=== PATIENT | female | born 1995 | race Caucasian/White ===

== ENCOUNTER → 2019-09-10 14:21 | Outpatient (CLI) | payer OTHER, SELFPAY ==
[2019-09-10 08:09] VITALS: BMI 24.6
[2019-09-10 15:07] LABS: Mucous, Urine 0 SEEN /hpf (<or=2+)
[2019-09-10 15:23] LABS: Color, Urine Yellow (Yellow); Glucose, Dipstick Normal (Normal); Ketone-Dipstick Negative (Negative); Leukocyte Esterase-Dipstick 500 /ul (Negative); Nitrite-Dipstick Positive (Negative); Occult Blood-Urine 150 /ul (Negative); Protein-Dipstick Negative (Negative); Specific Gravity, Urine 1.005 (1.002-1.030); Urine Clarity Sl. Cloudy (Clear); Urine Urobilinogen 4 mg/dl (Normal); Urine pH 6.5 (5.0 - 8.0)
[2019-09-10 15:24] LABS: Urine Bilirubin Dipstick 3 mg/dL (Negative)
[2019-09-10 15:26] LABS: Bacteria RARE /hpf (None Seen); Red Blood Cells-Urine 0-5 SEEN /hpf (0-5); Squamous Epithelial Cells - UA 0-5 SEEN /hpf (5-10); White Blood Cells 5-10 SEEN /hpf (0-5)
== END ==
PROVIDERS: Referring Provider Physician Assistant; Visit Provider Physician Assistant
DX: N30.01 Acute cystitis with hematuria (principal)
CPT/HCPCS: 81001; 87086; 87088

== ENCOUNTER → 2019-09-18 14:23 | Outpatient (CLI) | payer OTHER, SELFPAY ==
[2019-09-17 14:28] VITALS: BMI 24.6
[2019-09-18 14:39] LABS: Bacteria 0 SEEN /hpf (None Seen); Mucous, Urine 0 SEEN /hpf (<or=2+)
[2019-09-18 15:08] LABS: Color, Urine Straw (Yellow); Glucose, Dipstick Normal (Normal); Ketone-Dipstick Negative (Negative); Leukocyte Esterase-Dipstick 100 /ul (Negative); Nitrite-Dipstick Negative (Negative); Occult Blood-Urine 250 /ul (Negative); Protein-Dipstick Negative (Negative); Specific Gravity, Urine 1.005 (1.002-1.030); Urine Bilirubin Dipstick Negative (Negative); Urine Clarity Clear (Clear); Urine Urobilinogen Normal (Normal)
[2019-09-18 15:14] LABS: Red Blood Cells-Urine 25-50 SEEN /hpf (0-5); Squamous Epithelial Cells - UA 0-5 SEEN /hpf (5-10); White Blood Cells 10-25 SEEN /hpf (0-5)
== END ==
PROVIDERS: Referring Provider Physician Assistant; Visit Provider Physician Assistant
DX: N30.01 Acute cystitis with hematuria (principal)
CPT/HCPCS: 81001; 87086; 87088

== ENCOUNTER 2020-07-14 19:10 | Inpatient (IN) | payer OTHER, SELFPAY ==
[2019-09-17 14:28] VITALS: BMI 24.6
[2020-07-14 19:43] VITALS: BP 109/67; PULSE 82; TEMP 36.7
[2020-07-14 19:44] VITALS: TEMP 36.9
[2020-07-14] MEDS: Lactated Ringers 1,000 ML 50 ML IV (20:05)
[2020-07-14 20:22] VITALS: BMI 30.9
[2020-07-14 20:26] LABS: Absolute Lymphocyte Count 1.51 X10^3/uL (0.83-4.51); Basophil# 0.04 X10^3/uL; Basophil% 0.5 % (0-1); Eosinophil# 0.03 X10^3/uL; Eosinophils% 0.4 % (0-5); Hematocrit 38.2 % (37-47); Hemoglobin 11.9 g/dL (12.0-15.0); Lymphocyte # 1.51 X10^3/ul (4.0); Lymphocyte % 18.4 % (19-41); Mean Corp Hgb Conc 31.2 g/dL (32-36); Mean Corpuscular Hgb 25.4 pg (27.0-32.0); Mean Corpuscular Volume 81.6 fL (81-99); Mean Platelet Vol. 10.4 fl (6.2-12.0); Monocyte# 0.52 X10^3/uL; Monocyte% 6.3 % (0-10); NRBC Flagged by Analyzer 0 % (0-5); Neutrophil # 6.01 X10^3/uL (2.7-7.7); Neutrophil % 73.3 % (47-70); POSITIVE MORPHOLOGY YES; Platelet Count 165 K/mm3 (150-450); RBC Distribution Width CV 20.9 % (11.6-14.6); Red Blood Count 4.68 M/mm3 (4.2-5.4); White Blood Count 8.2 K/mm3 (4.4-11.0)
[2020-07-14 20:27] LABS: Differential Indicated SCAN CRITERIA MET
[2020-07-14 20:31] LABS: Bedside Glucose 66 mg/dL (70-110)
[2020-07-14] MEDS: miSOPROStol 25 MCG TABLET VAGINAL (21:10)
[2020-07-14 21:13] LABS: Anisocytosis 1+; Hypochromasia RARE; Microcytosis RARE; Platelet Estimate ADEQUATE (ADEQ); Red Cell Morphology N CHROM NORMAL (NORM C&C)
[2020-07-14 21:19] VITALS: BP 119/69; PULSE 76; TEMP 36.7
[2020-07-14 22:00] LABS: Amphetamine Urine VISTA NEGATIVE (<1000 ng/mL); Barbiturate Urine VISTA NEGATIVE (< 200 ng/mL); Benzodiazepine Urine VISTA NEGATIVE (< 200 ng/mL); Cocaine Urine VISTA NEGATIVE (< 300 ng/mL); Ecstacy Urine VISTA NEGATIVE (< 500 ng/mL); Methadone Urine VISTA NEGATIVE (< 300 ng/mL); PCP Urine VISTA NEGATIVE (< 25 ng/mL); THC Urine VISTA NEGATIVE (< 50 ng/mL); Vista UDS pH Range 7
[2020-07-15] VITALS (55 sets, daily range): BP systolic 101–161; BP diastolic 57–78; PULSE 63–87; RESP 14–18; TEMP 36.2–37.4; O2SAT 98–100
[2020-07-15 00:36] LABS: Bedside Glucose 100 mg/dL (70-110)
[2020-07-15] MEDS: Lactated Ringers 500 ML 999 ML IV (03:43)
[2020-07-15] MEDS: fentaNYL-bupivacaine (epidural) 100 ML BAG EPIDURAL ×2 (04:52→09:03)
[2020-07-15 05:31] LABS: Bedside Glucose 135 mg/dL (70-110)
[2020-07-15 06:21] LABS: Bedside Glucose 121 mg/dL (70-110)
[2020-07-15 08:21] LABS: Bedside Glucose 99 mg/dL (70-110)
--- NOTE | 2020-07-15 08:42 | PN.OBGYN_ITS ---
Subjective: Patient seen at bedside. Has epidural and denies any pain or feelings of contractions. Objective: Blood sugar this morning= 99 Will continue to monitor - Physical Exam Vitals/I&O's: Vital Signs Temp Pulse BP Pulse Ox 97.2 F L 72 112/72 100 07/15/20 07:28 07/15/20 07:29 07/15/20 07:29 07/15/20 05:42 Weight: 179 lb 14.355 oz Body Mass Index (BMI) 30.9 Intake and Output for Last 24 Hours 07/13/20 07/14/20 07/15/20 23:59 23:59 23:59 Intake Total 1760.83 / 1760.83 Output Total 200 / 200 1500 / 1500 Balance -200 / -200 260.83 / 260.83 General: Alert, Oriented x3 HEENT: Atraumatic Lungs: Normal air movement Cardiovascular: Regular rate Skin: No rashes Neurological: Cranial nerves II-XII grossly intact Psych/Mental Status: Normal Affect Laboratory Results 07/14/20 19:54: POC Glucose 66 L 07/14/20 20:05: WBC 8.2, RBC 4.68, Hgb 11.9 L, Hct 38.2, MCV 81.6, MCH 25.4 L, MCHC 31.2 L, RDW Std Deviation 61.0 H, RDW Coeff of Demar 20.9 H, Plt Count 165, MPV 10.4, Immature Gran % (Auto) 1.100 H, Neut % (Auto) 73.3 H, Lymph % (Auto) 18.4 L, [place] % (Auto) 6.3, Eos % (Auto) 0.4, Baso % (Auto) 0.5, Absolute Neuts (auto) 6.0, Absolute Lymphs (auto) 1.51, Nucleated RBC % 0, Platelet Estimate ADEQUATE, RBC Morphology N CHROM, Hypochromasia RARE, Anisocytosis 1+, Microcytosis RARE 07/14/20 20:05: Blood Type A POSITIVE, Antibody Screen NEGATIVE 07/14/20 21:02: Urine Opiates Screen NEGATIVE, Urine Methadone Screen NEGATIVE, Ur Barbiturates Screen NEGATIVE, Ur Phencyclidine Scrn NEGATIVE, Ur Amphetamines Screen NEGATIVE, U Methamphetamin-MDMA NEGATIVE, U Benzodiazepines Scrn NEGATIVE, Urine Cocaine Screen NEGATIVE, U Cannabinoids Screen NEGATIVE, Ur Drug Screen Comment 07/15/20 00:27: POC Glucose 100 07/15/20 05:13: POC Glucose 135 H 07/15/20 06:14: POC Glucose 121 H 07/15/20 07:54: POC Glucose 99 Current Medications Acetaminophen (Tylenol) 325 - 650 mg PO Q4H PRN PRN PRN Reason: Pain Score 1-3/10 Al Hydroxide/Mg Hydroxide (Mylanta Ii) 15 - 30 ml PO Q4H PRN PRN PRN Reason: INDIGESTION Citric Acid/Sodium Citrate (Bicitra) 30 ml PO X1 PRN PRN Reason: Section Dextrose (D50w Syringe) 0 gm IV X1 PRN; Protocol PRN Reason: Hypoglycemia Ephedrine Sulfate () 10 mg IV Q10M PRN PRN Reason: hypotension Ephedrine Sulfate () 10 mg IM Q30M PRN PRN Reason: hypotension Fentanyl Citrate (Sublimaze (100mcg Ampule)) 25 - 50 mcg IV Q2H PRN PRN PRN Reason: Pain Score 4-10/10 Fentanyl/Bupivacaine/Sodium Chlor () 0 ml EPIDURAL UD [facility]; Protocol Last Admin: 07/15/20 04:52 Dose: 100 ml Documented by: Glucagon () 1 mg IM .X1 PRN PRN Reason: Hypoglycemia Lactated Ringer's () 500 mls @ 999 mls/hr IV .Q31M PRN PRN Reason: Epidural Last Infusion: 07/15/20 04:26 Dose: Infused Documented by: Lactated Ringer's () 500 mls @ 999 mls/hr IV .Q31M PRN PRN Reason: Corrective Measures Lactated Ringer's () 1,000 mls @ 50 mls/hr IV .Q20H SIMONE Last Infusion: 07/15/20 05:18 Dose: 200 mls/hr Documented by: Naloxone HCl 4 mg/ Dextrose 504 mls @ 0 mls/hr IV .Q0M PRN; Protocol PRN Reason: To maintain Resp. rate >10 Nalbuphine HCl (Nubain) 5 mg IV Q3H PRN PRN PRN Reason: ITCHING Naloxone HCl (Narcan) 0.02 mg IV Q1M PRN PRN Reason: RR< 10 AND PT UNRESPONSIVE Ondansetron HCl (Zofran) 4 mg IV Q4H PRN PRN PRN Reason: NAUSEA Prochlorperazine Edisylate (Compazine Iv) 10 mg IV Q6H PRN PRN PRN Reason: NAUSEA Sodium Chloride () 10 - 40 ml IV X1 PRN PRN Reason: SALINE FLUSH Medical Necessity - Tobacco Use Smoking Status: Former smoker Assessment/Plan All Active Problems (Last Reviewed 09/17/19 @ 14:28 by Anabel Lopez) UTI (urinary tract infection) (Acute) at 38.1 weeks gestation for induction of labor for gestational diabetes. Pain management Routine care Gestational Diabetes protocol CE- 80/-2 AROM for moderate amount of clear fluid IUPC placed without difficulty Pitocin started at 2mu/min Anticipate
[2020-07-15] MEDS: Oxytocin 30 units/NS 500 ml 30 UNITS/500 ML IV.SOLN IV (09:02)
[2020-07-15] MEDS: Lactated Ringers 1,000 ML 200 ML IV (09:03)
[2020-07-15 09:46] LABS: Bedside Glucose 91 mg/dL (70-110)
[2020-07-15 10:16] LABS: Bedside Glucose 90 mg/dL (70-110)
[2020-07-15 11:16] LABS: Bedside Glucose 75 mg/dL (70-110)
[2020-07-15] MEDS: Oxytocin 30 units/NS 500 ml 30 UNITS/500 ML IV.SOLN 334 UNITS IV (12:03)
--- NOTE | 2020-07-15 12:15 | PCM.HP.OB ---
History Date of Admission: 07/15/20 Final EMILIE: 07/26/20 Final EMILIE Source: US <20 weeks Gestational age: 38 Weeks and 3 Days History of this : This is a 24 year-old, G 3, P 1011 38-2/7 weeks gestation presented for cervical ripening on 07/14/2020 due to uncontrolled insulin-dependent gestational diabetes in . She has a history of an abnormal Pap smear, marijuana use in , and anemia in the . Her first vaginal delivery was of a 9 pound 1 ounce at 40-2/7 weeks gestation. The mean weight on this by ultrasound is 4000 g clinically and by US. Denied any vaginal bleeding or leaking of fluid upon admission. Allergies No Known Allergies Allergy (Unverified 09/17/19 14:28) Home Medications: Home Medications Ferrous Sulfate 325 mg PO BID 07/14/20 Insulin NPH Human [Humulin N (Bkc)] 18 units SUBCUT DAILY@0730 07/14/20 Insulin NPH Human [Humulin N (Bkc)] 28 units SUBCUT QHS 07/14/20 Vits [Prenatabs FA] 1 tab PO DAILY 07/14/20 Smoking Status: Former smoker Alcohol: None Substance Use Type: Marijuana Number of Fetus(es): 1 History Past Pregnancies: Past Pregnancies Delivery Date Name GA/ Weeks Outcome Route Wt Sex Labor Length Anesthesia Delivery Location Provider FOB Expected Delivery Method: Spontaneous Vaginal Review of Systems Constitutional: Denies: Chills, Fever, Night Sweats Eyes: Denies: Blurred vision Cardiovascular: Denies: Chest Pain, Chest Pressure Respiratory: Denies: Cough, Shortness of Breath Gastrointestinal: Denies: Abdominal Pain, Vomiting Skin: Denies: Rash Neurological: Denies: Balance problems, Blurred vision, Change in Speech, Confusion Hematologic/ Lymphatic: Reports: Anemia Physical Exam Vitals: Vital Signs Temp Pulse BP Pulse Ox 97.7 F L 80 128/78 H 100 07/15/20 11:40 07/15/20 12:12 07/15/20 12:12 07/15/20 05:42 General: Alert, Cooperative, No apparent distress Cardiovascular: Regular rate Lungs: Normal air movement Abdomen: Soft, Non Tender, Non-Distended, Gravid, Appropriate for Gestational Age Extremities:: Other - 2+ edema Neurological: Neuro grossly intact. Negative for: Facial Droop, Slurred Speech BALLET TEACHER: Normal external genitalia Estimated gestational size: Appropriate for gestational size Presentation: Cephalic Assessment/Plan All Active Problems (Last Reviewed 09/17/19 @ 14:28 by Anabel Lopez) UTI (urinary tract infection) (Acute) This is a 24 year-old, G3 para 1-0-1-1 at 38-3/7 weeks gestation with insulin dependent gestational diabetes and estimated weight of 97 percentile presents for induction of labor. Her blood sugars have been difficult to control despite increasing her insulin. Maternal- medicine recommended and delivery and an induction between 38 and 39 weeks. Risk benefits and alternatives were discussed with patient, her questions were answered to her satisfaction and consent was signed. Patient may have epidural as needed for pain control. Estimated weight is 4000 g. Pelvis is clinically adequate to expect vaginal delivery..
--- NOTE | 2020-07-15 12:24 | PCM.OPRPT ---
Vaginal Delivery Maternal Presentation: Medically Indicated Induction Method of Induction: Pitocin, Amniotomy, Cytotec Medical Reason for Induction: - - GDM, not well controlled on insulin Amniotic Membrane Rupture Type: Artificial Amniotic Fluid Description: Clear Final EMILIE: 07/26/20 Final EMILIE Source: US <20 weeks Gestational age: 38 Weeks and 3 Days Date of Procedure: 07/15/20 Pre-Operative Diagnosis: labor Post-Operative Diagnosis: same Surgery/ Procedure Performed: Spontaneous Vaginal Delivery Type of Anesthesia: Epidural Description of Procedure: A vigorous male was delivered TALHA over a second-degree perineal laceration. The remainder the infant was delivered with maternal pushing and gentle traction only in less than 15 seconds. The Pitocin infusion was initiated for active management of the third stage. The cord was clamped and cut after 1 minute. The was attended to by the waiting nursing staff. The placenta was delivered spontaneously and intact. The cervix and vagina were intact. The second-degree perineal laceration was repaired with 3-0 Vicryl suture in a running standard fashion. Sponge and needle counts were correct. A vaginal sweep was completed by me. Presentation: TALHA Placental Delivery Description: Spontaneous Placenta Disposition: [facility] Cord Vessel Description: 3 Vessels Cord Entanglement: None Drain: - - none Estimated Blood Loss: 400 A gender: Male - Bro (1 minute): 8 (5 minute): 9 Episiotomy Description: None Laceration: 2nd degree - perineal Medications given after delivery: IV Pitocin Complications: None
[2020-07-15 13:15] LABS: Bedside Glucose 69 mg/dL (70-110)
[2020-07-15] MEDS: Naproxen 250 MG Tablet 500 MG PO (17:53)
[2020-07-15] MEDS: Acetaminophen 500 MG Tablet 1000 MG PO (21:29)
[2020-07-16] VITALS (9 sets, daily range): BP systolic 94–109; BP diastolic 58–70; PULSE 68–95; RESP 17–20; TEMP 36.2–36.9; O2SAT 95–100
[2020-07-16] MEDS: Naproxen 250 MG Tablet 500 MG PO (04:35)
[2020-07-16 06:16] LABS: Bedside Glucose 78 mg/dL (70-110)
--- NOTE | 2020-07-16 09:35 | PCM.PN.OB ---
Subjective: Patient seen at bedside. Feeling good. Ambulating and voiding without difficulty. Pain is controlled with Tylenol. Lochia decreasing. infant and using a shield. Desires discharge home today. - Physical Exam Vitals/I&O's: Vital Signs Temp Pulse Resp BP Pulse Ox 98.4 F 85 17 100/58 L 100 07/16/20 07:51 07/16/20 07:50 07/16/20 07:45 07/16/20 07:50 07/16/20 07:45 Oxygen Delivery Method Room Air Weight: 179 lb 14.355 oz Body Mass Index (BMI) 30.9 Intake and Output for Last 24 Hours 07/14/20 07/15/20 07/16/20 23:59 23:59 23:59 Intake Total 3396.77 / 3396.77 Output Total 200 / 200 5000 / 5000 Balance -200 / -200 -1603.23 / -1603.23 General: Alert, Oriented x3 HEENT: Atraumatic Lungs: Normal air movement Cardiovascular: Regular rate Abdomen: Soft, Non Tender, Passing Flatus Neurological: Cranial nerves II-XII grossly intact Psych/Mental Status: Normal Affect, Appropriate Laboratory Results 07/15/20 09:11: POC Glucose 91 07/15/20 10:09: POC Glucose 90 07/15/20 11:05: POC Glucose 75 07/15/20 13:04: POC Glucose 69 L 07/16/20 06:11: POC Glucose 78 Current Medications Acetaminophen (Tylenol) 1,000 mg PO Q8H PRN PRN PRN Reason: Pain Score 1-3/10 Last Admin: 07/15/20 21:29 Dose: 1,000 mg Documented by: Bisacodyl (Dulcolax) 10 mg RECTAL UD PRN PRN Reason: If no BM Dextrose (D50w Syringe) 0 gm IV X1 PRN; Protocol PRN Reason: Hypoglycemia Dibucaine (Dibucaine) 1 applic TOPICAL TID PRN PRN; Protocol PRN Reason: Discomfort Glucagon () 1 mg IM .X1 PRN PRN Reason: Hypoglycemia Hydrocortisone (Hytone) 1 applic TOPICAL TID PRN PRN; Protocol PRN Reason: Discomfort Methylergonovine Maleate (Methergine) 0.2 mg IM X1 PRN PRN Reason: Excess bleeding/uterine atony Naproxen (Naprosyn) 500 mg PO Q8H PRN PRN PRN Reason: Pain Score 1-3/10 Last Admin: 07/16/20 04:35 Dose: 500 mg Documented by: Ondansetron HCl (Zofran) 4 mg IV Q4H PRN PRN PRN Reason: Nausea Oxycodone HCl (Oxyir) 5 - 10 mg PO Q4H PRN PRN PRN Reason: Pain Score 4-10/10 Senna/Docusate Sodium (Senokot-S, Nanette-Colace) 1 - 2 tablet PO DAILY PRN PRN PRN Reason: Constipation Simethicone (Mylicon) 80 mg PO PCHS PRN PRN Reason: Indigestion/Stomach pain Sodium Chloride () 5 - 15 ml IV UD PRN PRN Reason: SALINE FLUSH Medical Necessity - Tobacco Use Smoking Status: Former smoker Assessment/Plan All Active Problems (Last Reviewed 09/17/19 @ 14:28 by Anabel Lopez) UTI (urinary tract infection) (Acute) A/P PPD #1 - 2nd degree laceration Routine care Pain management Discharge instructions Discharge home and to follow up in office or virtual in 2 weeks Patient and agree with plan of care
--- NOTE | 2020-07-16 09:38 | DCINST_ITS ---
Discharge Diet: No Restrictions Discharge Activity: Return to Normal Activity May resume sexual activity in: 4-6 weeks Weight Bearing Status: Weight bearing as tolerated Additional Instructions: If you experience any of the following, contact your healthcare provider. * Bleeding that soaks a pad every hour for 2 hours * Fever 100.4 or higher * Unrelieved incision or abdominal pain * Swelling, redness, discharge or bleeding from your incision or episiotomy site * Your incision begins to separate * Problems urinating (including inability to urinate or burning while urinating). * Visual changes * Severe headache * Flu-like symptoms * Pain or redness in one of both of your breasts * Pain, warmth, tenderness or swelling in your legs, especially the calf area * Frequent nausea and vomiting * Symptoms of depression or anxiety If you experience any of the following, call 911 or go to the nearest Emergency Room. * Chest pain * Problems breathing * Seizure activity * Partial or complete paralysis of a body part, slurred speech, weakness or drooping of the face, or a sudden inability to walk or hold your balance Allergies/Adverse Reactions: Allergies No Known Allergies Allergy (Unverified 09/17/19 14:28) Medications to take at Discharge Vits [Prenatabs FA ] 1 tab PO DAILY 07/14/20 Please Follow Up With: Sydnie Etienne MD When: 2 weeks virtual visit and 6 weeks in office Primary Care Physician: Care Physician,No Primary [Primary Care Provider] - Test Results: Test results from this visit will be discussed in further detail at your follow- up appointment, if applicable. Proposed Discharge Date: 07/16/20
--- NOTE | 2020-07-16 09:38 | PCM.DCVAG ---
Discharge Diet: No Restrictions Discharge Activity: Return to Normal Activity May resume sexual activity in: 4-6 weeks Weight Bearing Status: Weight bearing as tolerated Additional Instructions: If you experience any of the following, contact your healthcare provider. Bleeding that soaks a pad every hour for 2 hours Fever 100.4 or higher Unrelieved incision or abdominal pain Swelling, redness, discharge or bleeding from your incision or episiotomy site Your incision begins to separate Problems urinating (including inability to urinate or burning while urinating). Visual changes Severe headache Flu-like symptoms Pain or redness in one of both of your breasts Pain, warmth, tenderness or swelling in your legs, especially the calf area Frequent nausea and vomiting Symptoms of depression or anxiety If you experience any of the following, call 911 or go to the nearest Emergency Room. Chest pain Problems breathing Seizure activity Partial or complete paralysis of a body part, slurred speech, weakness or drooping of the face, or a sudden inability to walk or hold your balance Allergies/Adverse Reactions: Allergies No Known Allergies Allergy (Unverified 09/17/19 14:28) Medications to take at Discharge Vits [Prenatabs FA ] 1 tab PO DAILY 07/14/20 Please Follow Up With: Sydnie Etienne MD When: 2 weeks virtual visit and 6 weeks in office Primary Care Physician: Care Physician,No Primary [Primary Care Provider] - Test Results: Test results from this visit will be discussed in further detail at your follow-up appointment, if applicable. Proposed Discharge Date: 07/16/20
--- NOTE | 2020-07-16 09:45 | CASEMGMT ---
Addendum entered by Larisa Escamilla 07/16/20 11:01: SW did give resources for [facility] and Counseling agencies as well. RODRÍGUEZ De La Rosa Original Note: Social Work Assessment Labor and Delivery Unit Date/Time of referral: 07/15/2020, 18:18 Referred by: Dr. Sydnie Etienne Date/Time of intervention: 07/16/2020, 9:30am Reason for Referral: THC use in early History obtained from MOB and FOB Household Composition: MOB, FOB Guru Hays(been together 3-4 years), 7 year old, and now baby Angel Patient's parent/guardian status: MOB is guardian of baby Medical History: MOB, Gestational diabetes. 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 Infant Supplies: They have all needed supplies including car seat, clothing, diapers, bottles, formula, crib, bassinet, pack n play Childcare/Caregivers: MOB and FOB, FOB's mother will watch baby when MOB returns to work Transportation: Yes, have access Programs/Agencies involved: None, had WIC and Medicaid w/first child, not now. Children's Services involvement/legal issues: None Behavioral Health issues: Both MOB and FOB deny any mental health concerns Substance Abuse: MOB and FOB deny any substance abuse other than MOB using marijuana early in . MOB aware of positive tox screen in December of 2019. No other positive tox screens documented. Tox screen here negative for MOB and baby, Meconium pending. MOB denies any concern regarding safety(was able to ask initially whe Family/Social Stressors: MOB/FOB both deny any stressors Support Systems: FOB's mother, aunt, grandparents. MOB's mother and former child support investigator Depression and Anxiety/Shaken Baby/Safe Sleeping: SW gave information and reviewed information on all three, gave list of counseling agencies as well. MOB denies any history of depression. Assessment: SW spoke w/MOB and FOB, both appropriate, forthcoming with information. Baby in bassinet during conversation, both attentive to baby. MOB and FOB identify no homegoing concerns, state having supportive family. MOB and FOB deny any substance abuse, MOB denies using marijuana since December. Plan: SW explained to MOB and FOB that SW will be calling Children's Services due to positive tox screen in December, and will let them know what Children's Services says. SW called Children's Services, spoke w/Ivana Schulz, she called her decorating supervisor and called this SW back. She states that if the meconium comes back positive they will go out to see the family, otherwise they will not be opening a case. SW let FOB and MOB know this, both state understanding. MOB and baby are able to discharge when ready from older adult social work specialist standpoint, and if meconium positive when it comes back, Children's Services will be called. Otherwise, no further social service needs are anticipated at this time. RODRÍGUEZ De La Rosa
[2020-07-16] MEDS: Senna/Docusate Sodium 1 Tablet PO (13:51)
== END 2020-07-16 14:50 | disposition home or self-care (01) | DRG 807 ==
PROVIDERS: Admitting Provider Obstetrics & Gynecology; Visit Provider Obstetrics & Gynecology
DX: O24.424 Gestational diabetes mellitus in childbirth, insulin controlled (principal); Z37.0 Single live birth; O70.1 Second degree perineal laceration during delivery; Z3A.38 38 weeks gestation of pregnancy; Z87.891 Personal history of nicotine dependence; F12.90 Cannabis use, unspecified, uncomplicated; O99.320 Drug use complicating pregnancy, unspecified trimester
CPT/HCPCS: 59025; 59050; 80307; 82962; 85025; 86850; 86900; 86901; 99218; J7120; G0378

== ENCOUNTER → 2024-02-08 | Outpatient (CLI) | payer BC, SELFPAY ==
--- OUTSIDE RECORDS SUMMARY | 2024-02-08 10:20 | XMS RPT_ITS | CCD ---
Author Name Unknown Address [address] [place] [address] Organization [facility] Care Team Providers Care Residential Housekeeper Name Role Phone JACI PARR Unavailable Unavailable JACI PARR Unavailable Unavailable NO REFERRING Unavailable Unavailable Unavailable Primary Care Provider Unavailabl e Required, No Pcp Unavailable Unavailable Ramana Coley Unavailable Unavailable Primary Care Provider Unavailabl e Unavailable Primary Care Provider Unavailabl JANEL Watson Referring Unavailable JANEL ADAME Attending Unavailable LETTY SERRA Attending Unavailable JANEL ADAME Attending Unavailable Medications Current Medications Medication Drug Class(es) Dates Sig (Normalized) Sig (Original) acyclovir 400 mg oral tablet (1 source) Herpesvirus Nucleoside Analog DNA Polymerase Inhibitor, Herpes Simplex Virus Nucleoside Analog DNA Polymerase Inhibitor, Herpes Zoster Virus Nucleoside Analog DNA Polymerase Inhibitor Start: 09-04-2022 End: 09-11-2022 take 1 tablet by mouth twice daily acyclovir (ZOVIRAX) 400 mg tablet Take 1 tablet by mouth twice daily for 7 days. 14 tablet 0 09/04/2022 09/11/2022 Active Completed/Discontinued Medications Medication Drug Class(es) Dates Sig (Normalized) Sig (Original) ferrous sulfate (2 sources) ferrous sulfate (IRON ORAL) Take 65 mg by mouth. 0 Active Problems Active Problems Problem Classification Problem Date Documented Da te Episodic/Chronic Genitourinary symptoms and ill-defined conditions (7 sources) Dysuria; Translations: [Dysuria] Onset: 08-06-2017 Episodic Past or Other Problems Problem Classification Problem Date Documented Da te Episodic/Chronic Other female genital disorders (8 sources) History of abnormal cervical Papanicolaou smear ; Translations: [Personal history of other diseases of the female genital tract] Onset: 12-10-2019 12-10-2019 Episodic Residual codes; unclassified (8 sources) FH: Congenital anomaly; Translations: [Family history of other congenital malformations, deformations and chromosomal abnormalities] Onset: 12-10-2019 12-10-2019 Episodic Urinary tract infections (1 source) Urinary tract infection, site not specified; Translations: [UTI SITE NOT SPECIFIED] Onset: 08-06-2017 Episodic Results Test Name Value Interpretation Reference Range Facil ity Vital Signs Date Time Vital Sign Value Performing Clinician Facility 11-28-2022 14:38-0500 Body weight 87.09 kg Letty Serra APRN.CNP Work Phone: [facility] 11-28-2022 14:38-0500 Diastolic blood pressure 72 mm[Hg] Letty Serra APRN.CNP Work Phone: [facility] 11-28-2022 14:38-0500 Systolic blood pressure 124 mm[Hg] Letty Serra APRN.CNP Work Phone: [facility] 08-25-2022 11:11-0400 Body height 162 cm No Pcp Required [facility] 08-25-2022 11:11-0400 Body temperature 98.06 [degF] No Pcp Required [facility] 08-25-2022 11:11-0400 Diastolic blood pressure 80 mm[Hg] No Pcp Required [facility] 08-25-2022 11:11-0400 Heart rate 69 /min No Pcp Required [facility] 08-25-2022 11:11-0400 SaO2% (BldA) [Mass fraction] 99 % No Pcp Required [facility] 08-25-2022 11:11-0400 Systolic blood pressure 115 mm[Hg] No Pcp Required [facility] Encounters Encounter Date Encounter Type Care Provider Facility Start: 06-13-2023 ambulatory Janel herr CULLET CRUSHER.CNM Work Phone: OB/Gynecology Procedures Date Procedure Procedure Detail Performing Clinician Start: 06-07-2023 Us transvaginal Nikia Adame APRN.CNM Work Phone: Start: 11-28-2022 BACTERIAL VAGINOSIS AMPLIFICATION Letty Serra APRN.CNP Work Phone: Start: 11-28-2022 Iadna trichomonas va ginalis amplified probe tech Letty Serra CULLET CRUSHER.ROD CUP FILLER Work Phone: Plan of Treatment Date Care Activity Detail Author Start: 06-14-2030 Urine microalbumin profile [facility] Start: 09-27-2027 HPV Testing HPV Testing [facility] Start: 09-27-2027 Pap Testing Pap Testing [facility] Start: 09-27-2025 PAP TESTING PAP TESTING [facility] Start: 08-02-2023 Influenza vaccination [facility] Start: 12-21-2022 PAP TESTING PAP TESTING [facility] Start: 12-02-2022 DEPRESSION ASSESSMENT DEPRESSION ASSESSMENT [facility] Start: 08-02-2022 Influenza vaccination INFLUENZA (#1) [facility] Start: 06-11-2022 End: 08-11-2022 Bacteria identified in Urine by Culture URINE CULTURE Microbiology Routine Dysuria Expected: 06/11/2022, Expires: 08/11/2022 [facility] Work Phone: Immunizations Immunization Date Immunization Notes Care Provider Daphne ralph 06-14-2020 tetanus toxoid, redu nancy diphtheria toxoid, and acellular pertussis vaccine, adsorbed Janel Francescadaniel CULLET CRUSHER.CNM Work Phone: [facility] Work Phone: Payers Date Payer Category Payer Unknown [id number] 2019 Unknown MMO MMO [employer] [id number] 2019-Present [phone] [address] [place] [address] PPO [id number] 2019 Unknown Private Health Insurance [id number] Social History Date Type Detail Facility Start: 09-25-2017 End: 09-27-2022 Tobacco smoking status NHIS Never smoked tobacco [facility] Start: 09-25-2017 End: 09-27-2022 Tobacco use and exposure Smokeless tobacco non-user [facility] Start: 01-16-2021 End: 04-26-2023 Alcohol intake Current non-drinker of alcohol (finding) [facility] Start: 12-10-2019 History SDOH Financial 5 [facility] Start: 12-10-2019 History SDOH Food Worry 1 [facility] Start: 12-10-2019 History SDOH Transpo rt Med 2 [facility] Start: 12-10-2019 Education 21 [facility] Start: 1995 Sex Assigned At Not on file [facility] Tobacco smoking consumption unknown [facility] Start: 04-13-2023 End: 04-26-2023 History of Social function [facility] Work Phone: Start: 04-13-2023 End: 04-26-2023 Tobacco use panel [facility] Work Phone: How hard is it for y ou to pay for the very basics like food, housing, medical care, and heating Not hard at all [facility] Work Phone: (I/We) worried wheth er (my/our) food would run out before (I/we) got money to buy more. Never true [facility] Work Phone: Clinical Notes 05-31-2020 to 06-07-2023 Ethel Reed RDMS - 06/07/2023 9:45 AM EDTPatient InstructionsLetty Serra APRN.ROD CUP FILLER - 11/28/2022 2:35 PM ESTTelephone Encounter - Soumya Manuel LPN - 11/28/2022 1:12 PM EST Note Date & Type Note Facility 06-07-2023 Note HNO ID: [id number] Author: Ethel Reed RDMS Service: ? Author Type: Supervisor Elementary Education Type: Progress Notes Filed: 06/07/2023 10:17 AM Note Text: Radiology Service Progress Note PATIENT NAME: Ethel Elam DATE OF SERVICE: June 07, 2023 TIME: 10:17 AM PATIENT IDENTITY VERIFICATION COMPLETED USING TWO (2) IDENTIFIERS: Name and Date of confirmed by patient verbally. FALL SCREENING: Has the patient had 2 falls in the last year or 1 fall with injury or currently using an Ambulatory Assistive Device (Walker, Cane, Wheelchair, Crutches, etc.)? No PATIENT GENDER DATA: Female. status: : No status: NO. PATIENT RELEVANT IMPLANT DATA REVIEWED: Not Applicable RADIOLOGY DEPARTMENT: Ultrasound PERIPHERAL IV DATA: Not applicable SIGNED BY: Ethel Reed RDMS RVT June 07, 2023 10:17 AM [facility] 06-07-2023 History of Presen t illness Narrative Radiology Service Progress Note PATIENT NAME: Ethel Elam DATE OF SERVICE: June 07, 2023 TIME: 10:17 AM PATIENT IDENTITY VERIFICATION COMPLETED USING TWO (2) IDENTIFIERS: Name and Date of confirmed by patient verbally. FALL SCREENING: Has the patient had 2 falls in the last year or 1 fall with injury or currently using an Ambulatory Assistive Device (Walker, Cane, Wheelchair, Crutches, etc.)? No PATIENT GENDER DATA: Female. status: : No status: NO. PATIENT RELEVANT IMPLANT DATA REVIEWED: Not Applicable RADIOLOGY DEPARTMENT: Ultrasound PERIPHERAL IV DATA: Not applicable SIGNED BY: Ethel Reed RDMS RVT June 07, 2023 10:17 AM documented in this encounter [facility] 04-26-2023 Note HNO ID: [id number] Author: Janel Adame APRN.CNM Service: ? Author Type: Steel Layer Type: Progress Notes Filed: 04/26/2023 3:51 PM Note Text: Ethel Elam is a 27 year old female who presents for a follow up visit from ED. Patient seen in [place] ED on 04/12/23 for lower pelvic pain. Pelvic ultrasound and CT completed. Two complex ovarian cysts on right ovary visualized. Size of cysts were 4.2 and 3.6 cm. Patient was given pain medications and sent home. She was told to follow up with OB and have follow up pelvic ultrasound in 6 weeks. Patient denies any further pain. Stated she started her period a couple days after ED visit and has not felt any pain since. 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 History Comments: Sexual Activity: Yes; No partner data on record Contraception: No contraception data on record PAST MEDICAL HISTORY Diagnosis Date Abnormal Pap smear of cervix 2018 Marce 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 Anemia during in third trimester 05/06/2020 Gestational diabetes PAST SURGICAL HISTORY Procedure Laterality Date D+C VAGINOSCOPY FAMILY HISTORY Problem Relation Age of Onset No Known Problems Mother No Known Problems Father No Known Problems Brother COPD Maternal Grandmother other (cataracs) Maternal Grandfather Dementia Paternal Grandmother Heart Attack Paternal Grandfather other (undescended testicle) Son Social History Tobacco Use Smoking status: Never Smokeless tobacco: Never Vaping Use Vaping Use: Never used Substance Use Topics Alcohol use: No Drug use: No No current outpatient medications on file. No current facility-administered medications for this visit. Allergies As of Date: 04/26/2023 (No Known Allergies) Fully Assessed 04/12/2023 REVIEW OF SYSTEMS Abdomen: No bloating, early satiety, indigestion, or increased flatulence. No abdominal pain, nausea, vomiting, diarrhea, or constipation. Bladder: No dysuria, gross hematuria, urinary frequency, urinary urgency, or incontinence. Breast: No breast lumps, nipple d/c, overlying skin changes, redness or skin retraction. Expanded ROS: N/A Allergies and current medication updated:Yes EXAM: BP 116/72 Wt 187 lb (84.8kg) LMP 04/20/2023 GENERAL: pleasant, female in no apparent distress HEENT: Normocephalic and atraumatic NECK: Supple and full range of motion DERMATOLOGY: Normal and without lesions BREAST: deferred CHEST: Normal inspiratory effort ABDOMEN: Deferred PELVIC: deferred BIMANUAL: deferred NEURO: alert and oriented x3,exam grossly non-focal EXTREMITIES: normal ASSESSMENT/PLAN: 1. Ovarian cyst, complex - ICD9: 620.2, ICD10: N83.299 - 4.2 AND 3.6 cm complex cyst on right ovary - US FEMALE PELVIS TRANSVAG- follow up ultrasound needed - Discussed ovarian cysts and taking OTC if recurrent and bothersome. Patient declines due to desiring . Will notify patient of results Janel Adame APRN.PAUL [facility] 11-28-2022 Note HNO ID: [id number] Author: Letty Serra APRN.ROD CUP FILLER Service: ? Author Type: Nurse Practitioner Type: Progress Notes Filed: 11/28/2022 3:01 PM Note Text: Production Associate offered: Patient declines. Ethel Elam is a 27 year old female who presents for vaginal pruritis, discharge and foul odor for 3 days. Feels like past yeast infection. 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 OBJECTIVE: BP 124/72 Wt 192 lb (87.1kg) LMP 10/31/2022 GENERAL: Well developed, well nourished in no apparent distress ABDOMEN: soft, non-tender, and no masses PELVIC: external genitalia normal, normal Bartholin's glands, urethra, Lakemont's glands, no vulvar lesions, no cervical lesions, good vaginal support, thick white discharge present, normal appearing perineal body and perianal region BIMANUAL: uterus normal size, shape and consistency, no adnexal masses, and non-tender. ASSESSMENT/PLAN: 1. Acute vaginitis - ICD9: 616.10, ICD10: N76.0 - suspect yeast infection - DIANE / TRICHOMONAS AMPLIFICATION - BACTERIAL VAGINOSIS AMPLIFICATION - FLUCONAZOLE 150 MG TABLET - vulvar hygiene instructions Will notify of results. Follow- up as needed. Letty Serra APRN.CNP Medical Decision Making: Problems: Low: Acute, uncomplicated illness or injury Data: Unique test(s) ordered: 2 Risk: Moderate: Drug management Medical Decision Making Level: 3 - Low [facility] 11-28-2022 Instructions Letty Serra APRN.CNP - 11/28/2022 2:55 PM EST Minimizing irritation of the vulva (area around the vagina) Wear white cotton underwear. Avoid synthetic fabrics and tight clothing. Sleep wearing shorts or pajama bottoms without underwear. Shower as soon as possible after exercise. Avoid clothing detergents and soaps with perfumes or dyes. Use warm (not hot) water to wash the vulva and if you use soap use a product designed for sensitive skin (like Dove or Cetaphil). Do not douche or use creams/powders in the vulvar area unless instructed by your physician. If you must douche, use only plain warm water. Make sure the vulva is dry before dressing by patting dry with a towel. Avoid vigorous rubbing with the towel. You may want to use the blow dryer (on the cool setting only!) on the vulva. The most important way to let your body heal is by avoiding scratching. Many patients find it difficult to avoid scratching at night when they are most aware of the itchiness. You can try taking Benadryl just before bedtime. Some women find it helpful to wear cotton gloves to bed to avoid scratching at night. documented in this encounter [facility] 11-28-2022 History of Presen t illness Narrative Production Associate offered: Patient declines. Ethel Elam is a 27 year old female who presents for vaginal pruritis, discharge and foul odor for 3 days. Feels like past yeast infection. 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 OBJECTIVE: BP 124/72 Wt 192 lb (87.1kg) LMP 10/31/2022 GENERAL: Well developed, well nourished in no apparent distress ABDOMEN: soft, non-tender, and no masses PELVIC: external genitalia normal, normal Bartholin's glands, urethra, Lakemont's glands, no vulvar lesions, no cervical lesions, good vaginal support, thick white discharge present, normal appearing perineal body and perianal region BIMANUAL: uterus normal size, shape and consistency, no adnexal masses, and non-tender. ASSESSMENT/PLAN: 1. Acute vaginitis - ICD9: 616.10, ICD10: N76.0 - suspect yeast infection - DIANE / TRICHOMONAS AMPLIFICATION - BACTERIAL VAGINOSIS AMPLIFICATION - FLUCONAZOLE 150 MG TABLET - vulvar hygiene instructions Will notify of results. Follow- up as needed. Letty Serra APRN.ANGE Medical Decision Making: Problems: Low: Acute, uncomplicated illness or injury Data: Unique test(s) ordered: 2 Risk: Moderate: Drug management Medical Decision Making Level: 3 - Low documented in this encounter [facility] 11-28-2022 Miscellaneous Notes Formattin g of this note might be different from the original. Pt contacted and appt. Given for 2:30 this afternoon. Soumya Manuel LPN documented in this encounter [facility] 09-28-2022 Miscellaneous Notes Formattin g of this note might be different from the original. Patient notified of results, verbalizes understanding of instructions. Keyla Rivera RN Please notify patient that she does have a yeast infection. I would like her to use Monistat 7 (or generic) 1 of a applicator full every night for 7 nights. If symptoms do not improve please garett the office. Margaret Burris APRN.ROD CUP FILLER documented in this encounter [facility] 09-27-2022 Note HNO ID: [id number] Author: Janel Adame APRN.CNM Service: ? Author Type: Steel Layer Type: Progress Notes Filed: 09/27/2022 8:46 AM Note Text: Production Associate offered: Patient declinesMarco A Davenport is a 27 year old who presents for an annual gynecologic exam without complaints. Menses: cycles every 27 days and 5-7 days of flow. 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 History Comments: Sexual Activity: Yes; No partner data on record Contraception: No contraception data on record PAST MEDICAL HISTORY Diagnosis Date Abnormal Pap smear of cervix 2018 [facility] 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 Anemia during in third trimester 05/06/2020 Gestational diabetes PAST SURGICAL HISTORY Procedure Laterality Date D+C VAGINOSCOPY FAMILY HISTORY Problem Relation Age of Onset No Known Problems Mother No Known Problems Father No Known Problems Brother COPD Maternal Grandmother other (cataracs) Maternal Grandfather Dementia Paternal Grandmother Heart Attack Paternal Grandfather other (undescended testicle) Son SOCIAL HISTORY Social History Tobacco Use Smoking status: Never Smokeless tobacco: Never Vaping Use Vaping Use: Never used Substance Use Topics Alcohol use: No Drug use: No REVIEW OF SYSTEMS Abdomen: No abdominal pain, nausea, vomiting, diarrhea, or constipation. No bloating, early satiety, indigestion, or increased flatulence. Bladder: No dysuria, gross hematuria, urinary frequency, urinary urgency, or incontinence. Breast: No breast lumps, nipple d/c, overlying skin changes, redness or skin retraction. Allergies and current medication updated:Yes EXAM: BP 120/64 Ht 5' 4 (1.63m) Wt 190 lb (86.2kg) LMP 09/12/2022 BMI 32.60 kg/(m2). GENERAL: pleasant, female in no apparent distress HEENT: Normocephalic, atraumatic, mucus membranes moist, and no lesions NECK: Supple, full range of motion, no adenopathy, and thyroid normal DERMATOLOGY: Normal, without lesions, non-icteric, and non-hirsute BREAST: soft, non-tender, symmetric, no dominant mass, normal nipple-areolar complex, no lymphadenopathy, and no nipple discharge CHEST: Normal inspiratory effort ABDOMEN: soft, non-tender, and no masses PELVIC: external genitalia normal, normal Bartholin's glands, urethra, [place]'s glands, no vulvar lesions, no cervical lesions, good vaginal support, normal appearing perineal body and perianal region. Moderate amount of thick white discharge in vaginal vault. BIMANUAL: uterus normal size, shape and consistency, no adnexal masses, non-tender, and no cervical motion tenderness RECTOVAGINAL: deferred. NEURO: alert and oriented x3,exam grossly non-focal EXTREMITIES: normal ASSESSMENT/PLAN: 1) Health maintenance: Pap done with reflex HPV. Nutrition, exercise and routine health maintenance exams reviewed. HPV vaccine: completed series 2) Contraception: none. 3) STD screening: Accepted STD check for Gonorrhea and Chlamydia. BV/Yeast- collected and sent 4) Follow up one year or sooner as needed Janel Adame APRN.CNM [facility] 09-04-2022 Miscellaneous Notes Formattin g of this note might be different from the original. Rx sent. Please notify patient. Thank you. Janel Adame APRN.CNM documented in this encounter [facility] 06-11-2022 Miscellaneous Notes Please have patient leave urine at lab. Janel Adame APRN.CNM Urine orders pending if appropriate. Katie Vasquez RN documented in this encounter [facility] documented as of this encounter (statuses as of 06/11/2022) [facility] History of Past illness Narrative* Problem Noted Date Resolved Date Excessive growth affec ting management of in third trimester 05/31/2020 07/29/2020 Gestational diabetes mellitus (GDM) in third tri mester 05/17/2020 07/29/2020 Overview: 05/31/20: NPH am/pm started. Grace Thomas MD Anemia during in third trimester 05/0607/29/2020 Overview: 06/06/20- Hgb. 9.9 - increase iron 2x daily. Order placed for CBC in 30 days. Janel Adame APRN.CNM add fe. monitor. Sydnie Etienne MD Marijuana use 01/18/2020 07/29/2020 Overview: 12/21/19-Positive THC on urine tox screen. Denies use after positive test. Re-screen at 28 weeks and in labor. Ethel Young APRN.CNM History of macrosomia in inf ant in prior , currently 12/10/2019 07/29/2020 Overview: 12/10/2019 Previous child's birthweight was 9lb1oz. TKRN History of gestational diabe teresa in prior , currently 12/10/2019 07/29/2020 Overview: May 06, 2020 Abnormal 1 hr, 3hr ordered. Sydnie Etienne MD 12/10/2019Patient had gestational DM with last . Will plan on GCT @ [facility]. TKRN Nausea and vomiting in 12/10/2019 03/02/2020 Overview: 12/10/2019Patient is complaining of nausea and occasional vomiting in . Dietary considerations discussed . Vitamin B6 recommended. Advised patient to call/come in if she is unable to keep any food or fluids down in a 24-hour period.TKRN Patient request for diagnostic testing 0 03/02/2020 Overview: 12/10/2019Patient desires nuchal ultrasound and considering genetic carrier screening testing. TKRN documented as of this encounter (statuses as of 09/04/2022) [facility] History of Past illness Narrative* Problem Noted Date Resolved Date Excessive growth affec ting management of in third trimester 05/31/2020 07/29/2020 Gestational diabetes mellitus (GDM) in third tri mester 05/17/2020 07/29/2020 Overview: 05/31/20: NPH am/pm started. Grace Thomas MD Anemia during in third trimester 05/0607/29/2020 Overview: 06/06/20- Hgb. 9.9 - increase iron 2x daily. Order placed for CBC in 30 days. Janel Adame APRN.CNM add fe. monitor. Sydnie Etienne MD Marijuana use 01/18/2020 07/29/2020 Overview: 12/21/19-Positive THC on urine tox screen. Denies use after positive test. Re-screen at 28 weeks and in labor. Ethel Young APRN.CNM History of macrosomia in inf ant in prior , currently 12/10/2019 07/29/2020 Overview: 12/10/2019 Previous child's birthweight was 9lb1oz. TKRN History of gestational diabe teresa in prior , currently 12/10/2019 07/29/2020 Overview: May 06, 2020 Abnormal 1 hr, 3hr ordered. Sydnie Etienne MD 12/10/2019Patient had gestational DM with last . Will plan on GCT @ [facility]. TKRN Nausea and vomiting in 12/10/2019 03/02/2020 Overview: 12/10/2019Patient is complaining of nausea and occasional vomiting in . Dietary considerations discussed . Vitamin B6 recommended. Advised patient to call/come in if she is unable to keep any food or fluids down in a 24-hour period.TKRN Patient request for diagnostic testing 0 03/02/2020 Overview: 12/10/2019Patient desires nuchal ultrasound and considering genetic carrier screening testing. TKRN documented as of this encounter (statuses as of 09/28/2022) [facility] History of Past illness Narrative* Problem Noted Date Resolved Date Excessive growth affec ting management of in third trimester 05/31/2020 07/29/2020 Gestational diabetes mellitus (GDM) in third tri mester 05/17/2020 07/29/2020 Overview: 05/31/20: NPH am/pm started. Grace Thomas MD Anemia during in third trimester 05/0607/29/2020 Overview: 06/06/20- Hgb. 9.9 - increase iron 2x daily. Order placed for CBC in 30 days. Janel Adame APRN.CNM add fe. monitor. Sydnie Etienne MD Marijuana use 01/18/2020 07/29/2020 Overview: 12/21/19-Positive THC on urine tox screen. Denies use after positive test. Re-screen at 28 weeks and in labor. Ethel Young APRN.CNM History of macrosomia in inf ant in prior , currently 12/10/2019 07/29/2020 Overview: 12/10/2019 Previous child's birthweight was 9lb1oz. TKRN History of gestational diabe teresa in prior , currently 12/10/2019 07/29/2020 Overview: May 06, 2020 Abnormal 1 hr, 3hr ordered. Sydnie Etienne MD 12/10/2019Patient had gestational DM with last . Will plan on GCT @ [facility]. TKRN Nausea and vomiting in 12/10/2019 03/02/2020 Overview: 12/10/2019Patient is complaining of nausea and occasional vomiting in . Dietary considerations discussed . Vitamin B6 recommended. Advised patient to call/come in if she is unable to keep any food or fluids down in a 24-hour period.TKRN Patient request for diagnostic testing 0 03/02/2020 Overview: 12/10/2019Patient desires nuchal ultrasound and considering genetic carrier screening testing. TKRN documented as of this encounter (statuses as of 12/04/2022) [facility] History of Past illness Narrative* Problem Noted Date Resolved Date Excessive growth affec ting management of in third trimester 05/31/2020 07/29/2020 Gestational diabetes mellitus (GDM) in third tri mester 05/17/2020 07/29/2020 Overview: 05/31/20: NPH am/pm started. Grace Thomas MD Anemia during in third trimester 05/0607/29/2020 Overview: 06/06/20- Hgb. 9.9 - increase iron 2x daily. Order placed for CBC in 30 days. Janel Adame APRN.CONNORM add fe. monitor. Sydnie Etienne MD Marijuana use 01/18/2020 07/29/2020 Overview: 12/21/19-Positive THC on urine tox screen. Denies use after positive test. Re-screen at 28 weeks and in labor. Ethel Young APRN.CONNORM History of macrosomia in inf ant in prior , currently 12/10/2019 07/29/2020 Overview: 12/10/2019 Previous child's birthweight was 9lb1oz. TKRN History of gestational diabe teresa in prior , currently 12/10/2019 07/29/2020 Overview: May 06, 2020 Abnormal 1 hr, 3hr ordered. Sydnie Etienne MD 12/10/2019Patient had gestational DM with last . Will plan on GCT @ [facility]. TKRN Nausea and vomiting in 12/10/2019 03/02/2020 Overview: 12/10/2019Patient is complaining of nausea and occasional vomiting in . Dietary considerations discussed . Vitamin B6 recommended. Advised patient to call/come in if she is unable to keep any food or fluids down in a 24-hour period.TKRN Patient request for diagnostic testing 0 03/02/2020 Overview: 12/10/2019Patient desires nuchal ultrasound and considering genetic carrier screening testing. TKRN documented as of this encounter (statuses as of 12/05/2022) [facility] History of Past illness Narrative* Problem Noted Date Resolved Date Excessive growth affec ting management of in third trimester 05/31/2020 07/29/2020 Gestational diabetes mellitus (GDM) in third tri mester 05/17/2020 07/29/2020 Overview: 05/31/20: NPH am/pm started. Grace Thomas MD Anemia during in third trimester 05/0607/29/2020 Overview: 06/06/20- Hgb. 9.9 - increase iron 2x daily. Order placed for CBC in 30 days. Janel Adame APRN.CONNORM add fe. monitor. Sydnie Etienne MD Marijuana use 01/18/2020 07/29/2020 Overview: 12/21/19-Positive THC on urine tox screen. Denies use after positive test. Re-screen at 28 weeks and in labor. Ethel Young APRN.PAUL History of macrosomia in inf ant in prior , currently 12/10/2019 07/29/2020 Overview: 12/10/2019 Previous child's birthweight was 9lb1oz. TKRN History of gestational diabe teresa in prior , currently 12/10/2019 07/29/2020 Overview: May 06, 2020 Abnormal 1 hr, 3hr ordered. Sydnie Etienne MD 12/10/2019Patient had gestational DM with last . Will plan on GCT @ [facility]. TKRN Nausea and vomiting in 12/10/2019 03/02/2020 Overview: 12/10/2019Patient is complaining of nausea and occasional vomiting in . Dietary considerations discussed . Vitamin B6 recommended. Advised patient to call/come in if she is unable to keep any food or fluids down in a 24-hour period.TKRN Patient request for diagnostic testing 0 03/02/2020 Overview: 12/10/2019Patient desires nuchal ultrasound and considering genetic carrier screening testing. TKRN documented as of this encounter (statuses as of 05/28/2023) [facility] History of Past illness Narrative* Problem Noted Date Diagnosed Date Resolved Date Excessive growth affec ting management of in third trimester 05/31/2020 07/29/20 Gestational diabetes mellitu s (GDM) in third trimester 05/17/2020 07/29/2020 Overview: 05/31/20: NPH am/pm started. Grace Thomas MD Anemia during in third trimester 05/06/2020 07/29/2020 Overview: 06/06/20- Hgb. 9.9 - increase iron 2x daily. Order placed for CBC in 30 days. Janel Adame APRN.CNM add fe. monitor. Sydnie Etienne MD Marijuana use 01/18/2020 07/29/2020 Overview: 12/21/19-Positive THC on urine tox screen. Denies use after positive test. Re-screen at 28 weeks and in labor. Ethel Young APRN.CNM History of macrosomia in inf ant in prior , currently 12/10/2019 07/29/2020 Overview: 12/10/2019 Previous child's birthweight was 9lb1oz. TKRN History of gestational diabe teresa in prior , currently 12/10/2019 07/29/2020 Overview: May 06, 2020 Abnormal 1 hr, 3hr ordered. Sydnie Etienne MD 12/10/2019Patient had gestational DM with last . Will plan on GCT @ [facility]. TKRN Nausea and vomiting in 12/10/2019 03/02/2020 Overview: 12/10/2019Patient is complaining of nausea and occasional vomiting in . Dietary considerations discussed . Vitamin B6 recommended. Advised patient to call/come in if she is unable to keep any food or fluids down in a 24-hour period.TKRN Patient request for diagnostic testing 12/10/2019 03/02/2020 Overview: 12/10/2019Patient desires nuchal ultrasound and considering genetic carrier screening testing. TKRN documented as of this encounter (statuses as of 06/13/2023) [facility] History of Past illness Narrative* Problem Noted Date Diagnosed Date Resolved Date Excessive growth affec ting management of in third trimester 05/31/2020 07/29/20 Gestational diabetes mellitu s (GDM) in third trimester 05/17/2020 07/29/2020 Overview: 05/31/20: NPH am/pm started. Grace Thmoas MD Anemia during in third trimester 05/06/2020 07/29/2020 Overview: 06/06/20- Hgb. 9.9 - increase iron 2x daily. Order placed for CBC in 30 days. Janel Adame APRN.CNM add fe. monitor. Sydnie Etienne MD Marijuana use 01/18/2020 07/29/2020 Overview: 12/21/19-Positive THC on urine tox screen. Denies use after positive test. Re-screen at 28 weeks and in labor. Ethel Young APRN.CNM History of macrosomia in inf ant in prior , currently 12/10/2019 07/29/2020 Overview: 12/10/2019 Previous child's birthweight was 9lb1oz. TKRN History of gestational diabe teresa in prior , currently 12/10/2019 07/29/2020 Overview: May 06, 2020 Abnormal 1 hr, 3hr ordered. Sydnie Etienne MD 12/10/2019Patient had gestational DM with last . Will plan on GCT @ [facility]. TKRN Nausea and vomiting in 12/10/2019 03/02/2020 Overview: 12/10/2019Patient is complaining of nausea and occasional vomiting in . Dietary considerations discussed . Vitamin B6 recommended. Advised patient to call/come in if she is unable to keep any food or fluids down in a 24-hour period.TKRN Patient request for diagnostic testing 12/10/2019 03/02/2020 Overview: 12/10/2019Patient desires nuchal ultrasound and considering genetic carrier screening testing. TKRN documented as of this encounter (statuses as of 10/07/2023) [facility] Acute [facility]- Primary Vaginitis and vulvovaginitis, unspecified [facility] Diagnosis Ovarian cyst, complex Other and unspecified ovarian cyst documented in this encounter [facility] for referral (narrative)* Diagnostic Procedure Only (Routine) - Closed Specialty Diagnoses / Procedures Referred By Contac t Referred To Contact US IMAGING Diagnoses Ovarian cyst, complex Procedures US FEMALE PELVIS TRANSVAG US TRANSVAGINAL Janel Adame APRN.CNM [address] [address] [place] [id number] Referral ID Status Reason Start Date Expiration Date V isits Requested Visits Authorized [id number] Closed Auto-Generate d Referral 04/26/2023 05/25/2024 1 1 [facility] Summary Purpose Family History No Family History Records FoundNo Family History Records FoundNo Family History Records Found Advance Directives Documents on File 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 Advance Directive(s) 11/09/2018 12:01 PM Advance Directive(s) 10/22/2018 9:47 AM Advance Directive(s) 05/13/2018 11:15 AM Advance Directive(s) 09/25/2017 8:15 AM Additional Source Comments INFORMATION SOURCE (unrecogn ized section and content) DATE CREATED AUTHOR AUTHOR'S ORGANIZ ATION 04/17/2023 [facility] DATE CREATED AUTHOR AUTHOR'S ORGANIZ ATION 06/11/2023 [facility] Source Comments (unrecognize d section and content) In the event this informatio n is protected by the Federal Confidentiality of Alcohol and Drug Abuse Patient Records regulations: The Federal rules restrict any use of the information to criminally investigate or prosecute any alcohol or drug abuse patient.[facility] the event this information is protected by the Federal Confidentiality of Alcohol and Drug Abuse Patient Records regulations: The Federal rules restrict any use of the information to criminally investigate or prosecute any alcohol or drug abuse patient.[facility] the event this information is protected by the Federal Confidentiality of Alcohol and Drug Abuse Patient Records regulations: The Federal rules restrict any use of the information to criminally investigate or prosecute any alcohol or drug abuse patient.[facility] the event this information is protected by the Federal Confidentiality of Alcohol and Drug Abuse Patient Records regulations: The Federal rules restrict any use of the information to criminally investigate or prosecute any alcohol or drug abuse patient.[facility] the event this information is protected by the Federal Confidentiality of Alcohol and Drug Abuse Patient Records regulations: The Federal rules restrict any use of the information to criminally investigate or prosecute any alcohol or drug abuse patient.[facility] the event this information is protected by the Federal Confidentiality of Alcohol and Drug Abuse Patient Records regulations: The Federal rules restrict any use of the information to criminally investigate or prosecute any alcohol or drug abuse patient.[facility] the event this information is protected by the Federal Confidentiality of Alcohol and Drug Abuse Patient Records regulations: The Federal rules restrict any use of the information to criminally investigate or prosecute any alcohol or drug abuse patient.[facility] the event this information is protected by the Federal Confidentiality of Alcohol and Drug Abuse Patient Records regulations: The Federal rules restrict any use of the information to criminally investigate or prosecute any alcohol or drug abuse patient.[facility] <item> Privacy Markings (unrecogniz ed section and content) Section Author: Ronit Rubalcava PROHIBITION ON REDISCLOSURE OF CONFIDENTIAL INFORMATION This notice accompanies a disclosure of information concerning a client made to you with the consent of such client. Reason for Visit (unrecogniz ed section and content) Reason Comments Vaginal Discharge Reason Comments Radiology US Specialty Diagnoses / Procedures Referred By Contac t Referred To Contact US IMAGING Diagnoses Ovarian cyst, complex Procedures US FEMALE PELVIS TRANSVAG US TRANSVAGINAL Janel Adame APRN.CN [address] [place] [address] [place] [id number] Referral ID Status Reason Start Date Expiration Date V isits Requested Visits Authorized [id number] Closed Auto-Generate d Referral 04/26/2023 05/25/2024 1 1 FOR RECORDS PERTAINING TO PATIENTS WHO ARE OR HAVE BEEN ENROLLED IN A CHEMICAL DEPENDENCY/SUBSTANCEABUSE PROGRAM, SOME INFORMATION MAY BE OMITTED. This clinical summary was aggregated from multiple sources. Caution should be exercised in using it in the provision of clinical care. This summary normalizes information from multiple sources, and as a consequence, information in this document may materially change the coding, format and clinical context of patient data. In addition, data may be omitted in some cases. CLINICAL DECISIONS SHOULD BE BASED ON THE PRIMARY CLINICAL RECORDS. [facility] [employer] [facility] provides no warranty or guarantee of the accuracy or completeness of information in this document.
[2024-02-08 11:46] LABS: Absolute Lymphocyte Count 1.94 X10^3/uL (0.83-4.51); Absolute Neutrophil Count 4.3 X10^3/uL (2.0-7.7); Basophil# 0.05 X10^3/uL; Basophil% 0.7 % (0-1); Eosinophil# 0.05 X10^3/uL; Eosinophils% 0.7 % (0-5); Hematocrit 41.4 % (37-47); Hemoglobin 13.4 g/dL (12.0-15.0); Lymphocyte # 1.94 X10^3/ul (0.83-4.51); Lymphocyte % 28.6 % (19-41); Mean Corp Hgb Conc 32.4 g/dL (32-36); Mean Corpuscular Hgb 26.6 pg (27.0-32.0); Mean Corpuscular Volume 82.1 fL (81-99); Mean Platelet Vol. 10.7 fl (6.2-12.0); Monocyte# 0.46 X10^3/uL; Monocyte% 6.8 % (0-10); NRBC Flagged by Analyzer 0 % (0-5); Neutrophil # 4.26 X10^3/uL (2.7-7.7); Neutrophil % 62.8 % (47-70); Platelet Count 298 K/mm3 (150-450); RBC Distribution Width CV 13.6 % (11.6-14.6); Red Blood Count 5.04 M/mm3 (4.2-5.4); White Blood Count 6.8 K/mm3 (4.4-11.0)
[2024-02-08 12:11] LABS: ALB/GLOB Ratio 1.1 RATIO (0.9-2.4); AST(SGOT) 10 U/L (15-37); Alanine Aminotransfer ALT/SGPT 16 U/L (13-56); Albumin, Serum 3.8 g/dL (3.2-5.0); Alkaline Phosphatase 62 U/L (45-117); Anion Gap 5 (5-15); BUN 12 mg/dL (7-18); BUN/Creat Ratio 19.1 RATIO (10-20); Calcium,Total 9.5 mg/dL (8.5-10.1); Chloride 104 mmol/L (98-107); Cholesterol 194 mg/dL (200); Creatinine, Serum 0.63 mg/dL (0.55-1.02); EST Glomerular Filtration Rate 118 mL/min (>60); Est Glom Filt Rate - Afr Amer 143 mL/min (>60); Globulin 3.5 g/dL (2.2-4.2); Glucose 132 mg/dL (74-106); High Density Lipoprotein 45 mg/dL; Potassium 4.4 mmol/L (3.5-5.1); Protein, Total 7.3 g/dL (6.4-8.2); Sodium Level 139 mmol/L (136-145); Thyroid Stim Hormone (TSH) 0.86 uIU/mL (0.358-3.74); Triglycerides 79 mg/dL; Very Low Density Lipoprotein 16 mg/dL (5-40)
[2024-02-08 12:12] LABS: Hemoglobin A1c 6.2 % (3.8-5.6)
== END | disposition home or self-care (01) ==
PROVIDERS: Referring Provider Family Medicine; Visit Provider Family Medicine
DX: Z00.00 Encounter for general adult medical examination without abnormal findings (principal); R63.5 Abnormal weight gain; Z86.32 Personal history of gestational diabetes
CPT/HCPCS: 36415; 80053; 80061; 83036; 84443; 85025